=== PATIENT | male | born 1965 | race Caucasian/White ===

== ENCOUNTER 2018-01-30 09:15 | Day surgery (SDC) | payer MEDICAID ==
[~2018-01-30] VITALS: Ht 172.7 cm; Wt 112.5 kg
[~2018-01-30 09:15] MED LIST: FURO40TA5 PO; LACT10SO6 PO; METH-611 PO; PANT20TA3 PO; PROP20TA7 PO; RIFA550T PO; SPIR100T5 PO
[2018-01-30] MEDS ORDERED: LACTATED RINGERS 1,000 ML IV SCH (10:30)
[2018-01-30 12:03] LABS: *BENZODIAZEPINES SCREEN URINE NEGATIVE (NEGATIVE); *COCAINE SCREEN URINE NEGATIVE (NEGATIVE); CANNABINOID URINE SCREEN NEGATIVE (NEGATIVE); METHADONE URINE SCREEN PRESUMTIVE POSITIVE (NEGATIVE); OPIATES URINE SCREEN PRESUMTIVE POSITIVE (NEGATIVE)
[2018-01-30 12:04] LABS: PHENCYCLIDINE URINE SCREEN NEGATIVE (NEGATIVE)
[2018-01-30 12:09] LABS: *AMPHETAMINES SCREEN URINE NEGATIVE (NEGATIVE); *BARBITURATES SCREEN URINE NEGATIVE (NEGATIVE)
[2018-01-30] MEDS ORDERED: FENTANYL CITRATE/PF 50MCG/ML 2ML VIAL ONE (13:08)
[2018-01-30] MEDS ORDERED: PROPOFOL 200MG/20ML VIAL IV ONE (13:09)
[2018-01-30] MEDS ORDERED: SIMETHICONE 40 MG/0.6 ML 30ML ONE (13:10)
[2018-01-30] MEDS ORDERED: LIDOCAINE HCL/PF 1% 10 MG/ML 5ML VIAL ONE (13:26)
[2018-01-30] MEDS ORDERED: ONDANSETRON HCL 4MG/2ML VIAL IV PRN (15:15)
== END 2018-01-30 15:00 | disposition home or self-care (01) ==
LOC: OR 09:15
PROVIDERS: ATTEND Internal Medicine Gastroenterology
DX: K29.50 Unspecified chronic gastritis without bleeding (principal); I10 Essential (primary) hypertension; D64.9 Anemia, unspecified; E66.01 Morbid (severe) obesity due to excess calories; K74.60 Unspecified cirrhosis of liver; Z98.890 Other specified postprocedural states; Z79.899 Other long term (current) drug therapy; Z88.8 Allergy status to other drugs, medicaments and biological substances
CPT/HCPCS: 43239; 80305; J3010; J3490; J7120; 88305; 88312; 88313; J2704